=== PATIENT | male | born 1945 | race Caucasian/White ===

== ENCOUNTER 2023-04-02 12:56 | Outpatient (CLI) | payer MEDICARE, OTHER ==
--- NOTE | 2023-04-02 17:30 | XRAY Report ---
PROCEDURE: Knee 2V LT INDICATIONS: KNEE PAIN,LEFT TECHNIQUE: 2 views of the knee(s) were acquired. COMPARISON: None. FINDINGS: Bones: No fractures or dislocations. No suspicious bony lesions. Moderate-severe tricompartmental degenerative changes of the left knee with significant joint space loss of the medial femorotibial c ompartment on weightbearing view. Prominent marginal osteophytes of all 3 compartments. Soft tissues: Small knee joint effusion. No suspicious soft tissue calcifications or masses. IMPRESSION: No acute bony abnormality. Moderate-severe tricompartmental osteoarthrosis of the left knee with significant joint space loss in volving the medial femoral tibial compartment. Small joint effusion. Reviewed by: Conner Joya MD on 04/02/2023 5:29 PM PST Approved by: Conner Joya MD on 04/02/2023 5:29 PM PST Station ID: [id number]
[2023-04-02 19:53] LABS: BASOPHILS # (AUTO) 0.1 10^3/uL (0.0-0.1); EOSINOPHILS # (AUTO) 0.4 10^3/uL (0.0-0.7); EOSINOPHILS % (AUTO) 4.5 %; HCT - HEMATOCRIT 41.5 % (42.0-52.0); HGB - HEMOGLOBIN 13.6 g/dL (14.0-18.0); LYMPHOCYTES # (AUTO) 2.3 10^3/uL (1.5-3.5); LYMPHOCYTES % (AUTO) 26.3 %; MEAN CORPUSCULAR HEMOGLOBIN 29.6 pg (27.0-31.0); MEAN CORPUSCULAR HGB CONC 32.8 g/dL (32.0-36.0); MEAN CORPUSCULAR VOLUME 90.4 fL (80.0-94.0); MEAN PLATELET VOLUME 11.6 fL (7.4-11.4); MONOCYTES # (AUTO) 0.7 10^3/uL (0.0-1.0); MONOCYTES % (AUTO) 8.1 %; NEUTROPHILS # (AUTO) 5.2 10^3/uL (1.5-6.6); NEUTROPHILS % (AUTO) 59.9 %; PLT - PLATELET COUNT 219 10^3/uL (130-450); RED BLOOD COUNT 4.59 10^6/uL (4.70-6.10); RED CELL DISTRIBUTION WIDTH 13.3 % (12.0-15.0); WHITE BLOOD COUNT 8.6 x10^3/uL (4.8-10.8)
[2023-04-02 20:14] LABS: ALBUMIN 4.7 g/dL (3.2-5.5); ALBUMIN/GLOBULIN RATIO 1.6 (1.0-2.2); ALKALINE PHOSPHATASE 40 IU/L (42-121); ALT ALANINE AMINOTRANSFERASE 26 IU/L (10-60); AST ASPARTATE AMINOTRANSFERASE 24 IU/L (10-42); BILIRUBIN,TOTAL 0.8 mg/dL (0.2-1.0); BUN - BLOOD UREA NITROGEN 17 mg/dL (6-20); CALCIUM 9.6 mg/dL (8.5-10.3); CARBON DIOXIDE - CO2 31 mmol/L (21-32); CHLORIDE 102 mmol/L (101-111); CHOL/HDL RATIO 2.7 (<5.0); CHOLESTEROL 168 mg/dL; CREATININE 0.9 mg/dL (0.6-1.3); GFR - MDRD 82 (>89); GLUCOSE 101 mg/dL (74-104); HDL CHOLESTEROL 63 mg/dL; LDL CHOLESTEROL,CALCULATED 89 mg/dL; LDL/HDL RATIO 1.4 (<3.6); POTASSIUM 3.7 mmol/L (3.5-4.5); SODIUM 138 mmol/L (135-145); TOTAL PROTEIN 7.6 g/dL (6.4-8.9); TRIGLYCERIDES 78 mg/dL (48-352); VLDL CHOLESTEROL 16 mg/dL
[2023-04-02 20:26] LABS: THYROID STIMULATING HORMONE 1.63 uIU/mL (0.34-5.60)
== END 2023-04-02 12:57 | disposition home or self-care (01) ==
LOC: DI.S 12:56
PROVIDERS: ATTEND Physician Assistant Medical
DX: M17.12 Unilateral primary osteoarthritis, left knee (principal); M25.462 Effusion, left knee; Z00.00 Encounter for general adult medical examination without abnormal findings
CPT/HCPCS: 36415; 80053; 80061; 83721; 84153; 84443; 85025

== ENCOUNTER 2023-04-03 13:16 | Outpatient (CLI) | payer MEDICARE, OTHER ==
[2023-04-03] MEDS ORDERED: iohexoL-300 100 ML VIAL ONE (13:38)
[2023-04-03] MEDS ORDERED: DIATRIZOATE MEGLU/DIATRIZO SOD 30 ML BOTTLE PO ONE (13:38)
--- NOTE | 2023-04-03 15:59 | CT Report ---
PROCEDURE: Abdomen/Pelvis W INDICATIONS: ABD PAIN CONTRAST: Omni 300 100ml TECHNIQUE: After the administration of intravenous contrast, a CT scan of the abdomen and pelvis was performed. Images were recorded and evaluated at appropriate window settings. Reformats: coronal and sagittal. F or radiation dose reduction, the following was used: automated exposure control, adjustment of mA and /or kV according to patient size. COMPARISON: None FINDINGS: Image quality: Good Lower chest: Basal atelectasis/scarring. Small hiatal hernia. Mild distal esophageal wall thickening, nonspecific. Coronary calcifications. Normal heart size. Liver: Scattered liver cysts. Subcentimeter lesions are too small to characterize, probably also cyst s. Gallbladder and biliary system: Unremarkable, nondilated Pancreas: Mildly ectatic duct, no discrete mass. No pathologic dilation. Spleen: Nonenlarged Adrenals: 1.5 cm left adrenal nodule. Mild right adrenal thickening. Kidneys: Scattered cysts. No solid mass identified. No collecting system dilation. Vessels and lymph nodes: Atherosclerotic calcifications. The main portal vein is patent. No abdominal aortic aneurysm. No pathologic lymph nodes by size criteria. Bowel and peritoneum: No pathologic ascites. Colonic diverticula. Consider correlation with age-appro priate colonoscopy results. No small bowel obstruction. No abscess. Body wall: Anterior abdominal wall postsurgical changes of suspected hernia repair. There is a possib le recurrent hernia to the right of the mesh, with neck measuring 1.4 x 0.9 cm. This contains fat and possibly congested omentum. Pelvis: Bladder is unremarkable. Prostate is not seen. Bones: Degenerative changes. No acute findings. Rightward lumbar spinal curvature. IMPRESSION: Possible fat containing hernia, possibly also with congested omentum, to the right of the anterior ab dominal wall mesh. No bowel obstruction. Other findings as above. 1.5 cm left adrenal nodule is most commonly an adenoma. Adrenal protocol CT or MRI could be obtained for confirmation. Reviewed by: Ash Nieto MD on 04/03/2023 3:58 PM PST Approved by: Ash Nieto MD on 04/03/2023 3:58 PM PST Station ID: [id number]
[2023-04-03] MEDS: DIATRIZOATE MEGLU/DIATRIZO SOD 30 ML BOTTLE PO ONE (16:18)
[2023-04-03] MEDS: iohexoL-300 100 ML VIAL IVP ONE (16:18)
== END 2023-04-03 13:17 | disposition home or self-care (01) ==
LOC: LAB 13:16
PROVIDERS: ATTEND Physician Assistant Medical
DX: M54.50 Low back pain, unspecified (principal); G89.29 Other chronic pain; R10.9 Unspecified abdominal pain; E27.8 Other specified disorders of adrenal gland; K44.9 Diaphragmatic hernia without obstruction or gangrene; I25.10 Atherosclerotic heart disease of native coronary artery without angina pectoris; K76.89 Other specified diseases of liver; N28.1 Cyst of kidney, acquired; K57.30 Diverticulosis of large intestine without perforation or abscess without bleeding; M19.91 Primary osteoarthritis, unspecified site
CPT/HCPCS: 74177; Q9963; Q9967

== ENCOUNTER 2023-05-21 08:50 | Day surgery (SDC) | payer MEDICARE, OTHER ==
[2023-05-21] MEDS: LACTATED RINGERS 1,000 ML IV ONE ×2 (09:03→11:22)
--- NOTE | 2023-05-21 10:30 | ANESTHESIA ---
Pre-Anesthesia VS, & Labs - Diagnosis ABD PAIN/SCREENING - Procedure COLONOSCOPY Height: 5 ft 7 in Weight (kg): 106.8 kg Body Mass Index: 36.8 BMI Classification: Obese - NPO Last Fluid Intake: 0430 Last Food Intake: >8HR - Lab Results Current Lab Results: Laboratory Tests 05/21/23 09:28: POC Whole Bld Glucose 133 H Home Medications and Allergies Home Medications: Ambulatory Orders Aspirin [Aspirin EC] 81 mg PO DAILY 05/18/23 Atorvastatin [Lipitor] 20 mg PO QPM 05/18/23 Celecoxib [Celebrex] 200 mg PO DAILY 05/18/23 Losartan [Cozaar] 50 mg PO DAILY 05/18/23 Multivitamin 1 each PO DAILY 05/18/23 [place]-3/Dha/Epa/Fish Oil [Fish Oil 1,000 mg Softgel] 1 each PO DAILY 05/18/23 amLODIPine [Norvasc] 5 mg PO DAILY 05/18/23 hydroCHLOROthiazide [Hydrodiuril] 25 mg PO DAILY 05/18/23 Aspirin [Aspirin EC] 81 mg PO DAILY 05/18/23 Atorvastatin [Lipitor] 20 mg PO QPM 05/18/23 Celecoxib [Celebrex] 200 mg PO DAILY 05/18/23 Losartan [Cozaar] 50 mg PO DAILY 05/18/23 Multivitamin 1 each PO DAILY 05/18/23 [place]-3/Dha/Epa/Fish Oil [Fish Oil 1,000 mg Softgel] 1 each PO DAILY 05/18/23 amLODIPine [Norvasc] 5 mg PO DAILY 05/18/23 hydroCHLOROthiazide [Hydrodiuril] 25 mg PO DAILY 05/18/23 Allergies/Adverse Reactions: Allergies Allergy/AdvReac Type Severity Reaction Status Date / Time diphenhydramine Allergy Hives Verified 05/21/23 09:25 [From Benadryl] promethazine [From Phenergan] Allergy Anaphylaxis Verified 05/21/23 09:25 Anes History & Medical History - Anesthetic History Anesthesia Complications: reports: No previous complications Family history of Anesthesia Complications: Denies - Medical History Cardiovascular: reports: Hypertension, High cholesterol, Arrhythmia (DENIES C/P , SOB, ACTIVITY LIMITED BY BACK, COULD DO 2 FOS W/O PROBLEMS) Pulmonary: reports: None Gastrointestinal: reports: None Urinary: reports: None Musculoskeletal: reports: None Endocrine/Autoimmune: reports: Type 2 diabetes (PRE DIABETIC/NO MEDS) Skin: reports: None Smoking Status: Never smoker Psychosocial: reports: No issues indicated - Surgical History General: reports: Colonoscopy, Other Urologic: reports: Prostatic surgery Results - EKG Results EKG Comparison: Reviewed EKG Exam General: Alert Dental: Partials Upper (OUT) Mouth Openin Fingerbreadth Neck Mobility: Normal Mallampati classification: II Thyromental Distance: 4-6 cm Plan Anesthesia Type: Total IV Consent for Procedure(s) Verified and Reviewed: Yes Code Status: Attempt Resuscitation ASA classification: 2-Mild systemic disease Is this case an emergency?: No
[2023-05-21] MEDS ORDERED: PROPOFOL 500 MG/50 ML 500 MG/50 ML VIAL ONE (10:58)
[2023-05-21 11:59] VITALS: BP 133/80; O2SAT 96
--- NOTE | 2023-05-21 14:13 | ANESTHESIA POST OP EVALUATION ---
Anesthesia Post Eval - Post Anesthesia Eval Vitals: Last Vital Signs Temp 36.1 C L 05/21/23 11:40 Pulse 64 05/21/23 11:40 Resp 16 05/21/23 11:40 BP 133/80 H 05/21/23 11:40 Pulse Ox 96 05/21/23 11:40 O2 Flow Rate CV Function Including HR & BP: Stable Pain Control: Satisfactory Nausea & Vomiting: Negative Mental Status: Baseline Respiratory Status: Airway Patent Hydration Status: Satisfactory Anesthesia Complications: None
== END 2023-05-21 08:51 | disposition home or self-care (01) ==
LOC: SDS 08:50
PROVIDERS: ATTEND Surgery
DX: Z12.11 Encounter for screening for malignant neoplasm of colon (principal); K64.1 Second degree hemorrhoids; I10 Essential (primary) hypertension; Z85.46 Personal history of malignant neoplasm of prostate; Z79.82 Long term (current) use of aspirin; R73.03 Prediabetes
CPT/HCPCS: G0121; J7120

== ENCOUNTER 2023-05-31 12:28 | Outpatient (CLI) | payer MEDICARE, OTHER ==
[2023-05-31 20:10] LABS: ESTIMATED AVERAGE GLUCOSE 120 mg/dL (70-100); HEMOGLOBIN A1c% 5.8 % (4.27-6.07)
== END 2023-05-31 12:29 | disposition home or self-care (01) ==
LOC: LAB.S 12:28
PROVIDERS: ATTEND Physician Assistant Medical
DX: R73.9 Hyperglycemia, unspecified (principal)
CPT/HCPCS: 36415; 83036